=== PATIENT | female | born 1985 | race Caucasian/White ===

== ENCOUNTER → 2024-07-04 | Outpatient (CLI) | payer OTHER, MEDICAID, SELFPAY ==
--- NOTE | 2024-07-04 15:30 | XR_ITS ---
Examination: MRI lumbar spine without contrast Date and time of exam: July 04, 2024 1716 hours INDICATIONS: Low back pain radiating to the right leg numbness in the right leg beginning August 2023 Technique: Multiple MRI axial and sagittal sections lumbar spine. Sagittal T2-weighted images, TR 3500, TE 118 T1 weighted transverse sections, TR 688 T8.5, T2-weighted sagittal sections T1 weighted sagittal sections TR 621, TE 30 T2 axial sections, TR 4, 190, TE 84. Findings: Adequate alignment lumbar vertebral bodies on the lateral view L3-L4, L4-L5 Marrow signal lumbar vertebral bodies No spondylolisthesis No lumbar fracture Axial images demonstrate no focal lumbar disc protrusion IMPRESSION: No lumbar fracture No acquired spinal stenosis
== END | disposition home or self-care (01) ==
LOC: SMRI 07-05 10:09
PROVIDERS: PCP Family Medicine; Referring Provider Physician Assistant; Visit Provider Physician Assistant
DX: M54.50 Low back pain, unspecified (principal)
CPT/HCPCS: 72148

== ENCOUNTER 2024-10-02 11:32 | Emergency (ER) | payer OTHER, MEDICAID, SELFPAY ==
[2024-10-02 11:34] VITALS: BMI 30.2
[2024-10-02 11:58] VITALS: BP 152/86; PULSE 100; RESP 18; TEMP 37.2; O2SAT 95
--- NOTE | 2024-10-02 12:01 | XR_ITS ---
Examination: AP lateral soft tissue neck 2 views Technique: AP lateral soft tissue neck 2 views Exam date and time: October 02, 2024 1322 hrs. Indications: Coughing up blood today, difficulty swallowing Findings: Mild prevertebral soft tissue prominence at the C4-C5 level measuring up to 11 mm Epiglottis does not appear thickened No distention hypopharynx No opaque foreign body Impression: Mild prevertebral soft tissue prominence, clinical correlation advised
--- NOTE | 2024-10-02 12:01 | XR_ITS ---
Examination: PA chest single view Technique: Upright PA chest single view Exam date and time: October 02, 2024 1329 hrs. Indications: Hemoptysis today Findings: Normal heart size. Lungs are clear. The osseous structures are intact Impression: No active disease
--- NOTE | 2024-10-02 12:03 | EDNOTE_ITS ---
<Statement entered by Vilma Thapa MD - 10/02/24 15:03> As co-signing physician, I was present and available for consult prn. I concur with the plan and care as documented by the midlevel provider. ED General RME/HPI General Chief complaint: GI Bleed Stated complaint: HEMATEMESIS X1 HOUR AGO; THROWING UP BLOOD CLOTS Time Seen by Provider: 10/02/24 11:49 Arrival date/time: 10/02/24 11:32 CC: Full sensation in her throat when she lays down to go sleep that causes her to have to clear her throat of secretions, occasionally she winds up coughing and then gets into a coughing fit. This morning this incident happened, at which time the patient coughed up blood and clots . Patient states this full sensation in her throat has been ongoing for a long time . But she has never had a coughing fit where she coughed up blood. Patient is afebrile nontoxic- appearing not in any acute distress. Related Data Previous Rx's ?Medication ?Instructions ?Recorded acetaminophen-caffeine 500 mg-65 1 tab PO Q6H PRN pain #30 tabs 10/04/23 mg tablet (Excedrin Tension Headache) ibuprofen 600 mg tablet 600 mg PO Q6H #30 tabs 10/03 prednisone 20 mg tablet See Taper PO BID 3 days #6 t abs 10/02/24 Allergies Allergy/AdvReac Type Severity Reaction Status Date / Time morphine AdvReac Unknown med does Verified 10/02/24 11:38 not work on pt Review of Systems Review of Systems Narrative Review of Systems: GEN: No fever, no chills, no weight loss EYES: No discharge, no visual changes, no pain HEENT: No ear pain, no congestion, no sore throat PULM: No shortness of breath, no cough, no congestion CV: No chest pain, no dyspnea on exertion, no palpitations GI: No nausea, no vomiting, no diarrhea, no pain, no constipation : No frequency, no urgency, no dysuria MUSC/SKEL: No joint pain, no back pain SKIN: No rash PSYCH: No hallucinations, no depression HEME/LYMPH: No easy bleeding or bruising tendencies NEURO: No weakness, no headache Past Medical History Past Medical History NEUROLOGIC: Positive Neurological Disorders, Seizures and Migraine CARDIAC: Negative Cardiac Disorders or Congestive Heart Failure RESPIRATORY: Negative Chronic Obstructive Pulmonary Disease (COPD) GASTROINTESTINAL: Positive Gastrointestinal Disorders and Ulcer GENITOURINARY: Negative Genitourinary Disorders or Renal Disease REPRODUCTIVE: Positive Endometriosis and Previous Pregnancies MUSCULOSKELETAL: Positive Musculoskeletal Disorders ENDOCRINE: Negative Endocrine Disorders, Diabetes Mellitus Type 1 or Diabetes Mellitus Type 2 HEMATOLOGIC: Positive Blood Disorders and Anemia OTHER HISTORY: Positive Chicken Pox; Negative Hospitalization, Shingles, Falls, Blood Transfusions, Blood Transfusion Reaction, Anesthesia Reactions or Cancer Family History FAMILY HISTORY: Positive Family Cardiac Disorders and Family Surgery; Negative Family Cancer or Family Anesthesia Reaction Surgical History SURGICAL: Positive Abdominal Surgery Social History SMOKING STATUS: Light (< 1 pack/day) ED Exam Narrative Physical exam: [General: Obese not in any acute distress Head normocephalic HEENT: Mouth pink moist membranes uvula is symmetrical swallow symmetrical phonation is normal nose no rhinorrhea all other subsystems of HEENT are within acceptable limits Neck is supple nontender, no stridor no edema no LAD Chest equal chest rise nontender to palpation Respiratory: Clear to auscultation no wheezes crackles or rubs CV: Rate rhythm is regular no murmurs rubs or clicks Skin: Intact no petechiae rash induration ulceration or crepitus Extremities: Moving all extremity against resistance cap refill less than 2 seconds neurosensory intact Neuro: Awake alert oriented x3 Glascow coma 15 no focal deficits] Course Quality Measures none Orders Category Date Time Status XR chest 1V Stat Exams 10/02/24 12:01 Completed XR soft tissue neck Stat Exams 10/02/24 12:01 Completed Vital Signs Vital signs: Vital Signs Temperature 98.9 F 10/02/24 11:58 Pulse Rate 100 10/02/24 11:58 Respiratory Rate 18 10/02/24 11:58 Blood Pressure 152/86 H 10/02/24 11:58 Pulse Oximetry (%) 95 10/02/24 11:58 Oxygen Delivery Method Room Air 10/02/24 11:58 [facility] Patient data External records reviewed:: [facility] previous records Clinical information provided by:: patient Social determinants that could affect healthcare access:: none Patient has the following chronic illnesses:: None How is presenting disease/condition affected by chronic disease/condition?: uneffected by Evaluation data The following diagnostics were reviewed and interpreted by me:: radiology exam(s) Lab and/or radiology exams considered but not ordered:: Chest x-ray is negative for any acute finding Soft tissue neck shows mild soft tissue prominence in the pre for tubular region Interpretation Summary: Patient is swallowing all of her own saliva and secretions is able to take foods without too much of a problem. This time patient can be referred over to GI and/or ENT. Will start the patient on steroids to see if this helped. Also patient is advised to take a bland diet. Patient is already on PPIs has trialed most of them help with good heartburn Medications Medications considered but not ordered:: None Medication administrations:: None Consultations Consultation(s) initiated? (list below): No Diagnosis Differential Diagnosis ED Complaint MDM: Reflux, esophageal edema, difficulty swallowing Most likely diagnosis given after review of the tests above:: Difficulty swallowing Admission Indicated Admission indicated?: not indicated Explain why admission is indicated or not indicated:: Stable for outpatient follow-up Admission Request Was there a request for admission?: No Disposition Plan Disposition Plan: Discharge Discharge Attestation Discharge Attestation: The patient and all family members were given an opportunity to ask questions and understood the discharge instructions. Discharge instructions specifically effects, indications for sooner follow up or return to the emergency department, and the expected course of current diagnosis. Patient condition: Stable Medical Decision Making Differential Diagnosis Differential Diagnosis: Reflux, esophageal edema, difficulty swallowing Discharge Plan Plan Patient Disposition: HOME (Self Care) Patient condition on transfer: Stable Prescriptions/Referrals Prescriptions/Med Rec: New prednisone 20 mg tablet See Taper PO BID 3 Days Qty: 6 0RF Taper: Prednisone Taper 20 mg DAILY for 2 Days and 0 Hour 10 mg DAILY for 2 Days and 0 Hour 5 mg DAILY for 7 Days and 0 Hour No Action Excedrin Tension Headache 500-65 mg tablet 1 tab PO Q6H PRN (Reason: pain) Qty: 30 0RF ibuprofen 600 mg tablet 600 mg PO Q6H Qty: 30 0RF Referrals: Jero Landry MD [Primary Care Provider] - In 1 week Armando Clemens MD [Physician] - In 1 week Vern Keita DO [Physician] - In 1 week Problem List Clinical Impression: Difficulty in swallowing Impression comment: Stick to a bland diet, continue to take your omeprazole. Get a referral to GI. If there is worsening of symptoms return the emergency room immediately for further evaluation Patient/Caregiver Discharge Instructions Education Materials: ED Dysphagia (Adult) Print Language: German Stand Alone Forms: [employer] Info., Patient Portal Info Letter, Work/School Release PA/GUTTER [employer]ER Supervising Physician PA/GUTTER [employer]ER Supervising Physician: Oren Chilel ENP
== END 2024-10-02 13:57 | disposition home or self-care (01) ==
PROVIDERS: Emergency Provider Emergency Medicine; PCP Family Medicine
DX: M79.89 Other specified soft tissue disorders (principal); R04.2 Hemoptysis
CPT/HCPCS: 70360; 71045; 99283

== ENCOUNTER 2025-04-30 15:57 | Emergency (ER) | payer BC, MEDICAID, SELFPAY ==
[2025-04-30 16:26] VITALS: BP 156/92; PULSE 98; RESP 18; TEMP 37.1; O2SAT 95; BMI 31.8
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
--- NOTE | 2025-04-30 16:30 | PD.EDRME ---
Rapid Medical Screening Exam RME Arrival date/time: 04/30/25 15:57 40-year-old female presents to the emergency room today for complaints of Chief Complaint: Headache Vital signs: Vital Signs Temperature 98.7 F 04/30/25 16:26 Pulse Rate 98 04/30/25 16:26 Respiratory Rate 18 04/30/25 16:26 Blood Pressure 156/92 H 04/30/25 16:26 Pulse Oximetry (%) 95 04/30/25 16:26 Oxygen Delivery Method Room Air 04/30/25 16:26 Vital signs reviewed by provider: Yes Exam: On exam patient well-appearing patient does not appear ill or toxic no acute distress Clinical Impression: Imaging obtained
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
[2025-04-30 21:58] VITALS: BP 138/94; PULSE 90; RESP 18; TEMP 37.1; O2SAT 95
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
[2025-04-30 22:26] LABS: HCG Qualitative,Urine Negative
[2025-04-30] MEDS: KETOROLAC INJ 30 MG/ML VIAL IM (22:33)
[2025-04-30 22:38] VITALS: BP 138/94; PULSE 76; RESP 18; TEMP 36.8; O2SAT 98
== END 2025-04-30 22:39 | disposition home or self-care (01) ==
PROVIDERS: Registered Nurse General Practice; Emergency Provider Emergency Medicine; PCP Family Medicine
DX: S62.635A Displaced fracture of distal phalanx of left ring finger, initial encounter for closed fracture (principal); S16.1XXA Strain of muscle, fascia and tendon at neck level, initial encounter; R51.9 Headache, unspecified; V89.2XXA Person injured in unspecified motor-vehicle accident, traffic, initial encounter
CPT/HCPCS: 70450; 72125; 73130; 81025; 96372; 99283; J1885

== ENCOUNTER → 2025-06-17 | Outpatient (CLI) | payer BC, MEDICAID, SELFPAY ==
--- NOTE | 2025-06-17 08:00 | XR_ITS ---
Examination: MRI cervical spine without intravenous contrast Date and time of exam: June 17, 2025, 0922 hours, comparison May 11, 2016 INDICATIONS: Right-sided neck pain radiating down the right arm numbness and paresthesias weakness in the right arm beginning 1.5 years ago Technique: Multiple axial and sagittal sections of the cervical spine to been obtained. T2 weighted sagittal sections, TR 3, 270, TE 117 T1-weighted sagittal sections, TR 500, TE 11 T1-weighted axial sections, TR 607, TE 12, axial sections TR 18, TE 27 and T2 weighted transverse sections, TR 3920, TE 122. Findings: Straightening normal cervical lordosis No cervical fracture. Diffuse cervical disc desiccation. Intact odontoid. Moderate disc narrowing C5-C6 C6-C7 No localized enlargement cervical cord C2-C3 no disc protrusion C3-C4 no disc protrusion C4-C5 3 mm central subarticular osteophyte disc complex, advanced right and moderate left neuroforaminal stenosis C5-C6 3 mm central subarticular osteophyte disc complex, advanced bilateral neuroforaminal stenosis C6-C7 uncinate process hypertrophy with moderate bilateral neuroforaminal stenosis C7-T1 no disc protrusion IMPRESSION: C4-C5 3 mm central subarticular osteophyte disc complex, advanced right moderate left neural foraminal stenosis C5-C6 3 mm central subarticular osteophyte disc complex, advanced bilateral neuroforaminal stenosis C6-C7 moderate bilateral neural foraminal stenosis
== END | disposition home or self-care (01) ==
PROVIDERS: PCP Family Medicine; Referring Provider Family Medicine; Visit Provider Family Medicine
DX: M25.78 Osteophyte, vertebrae (principal); M48.02 Spinal stenosis, cervical region
CPT/HCPCS: 72141